=== PATIENT | female | born 1955 | race Caucasian/White ===

== ENCOUNTER 2020-01-11 11:42 | Emergency (ER) | payer OTHER ==
--- NOTE | 2020-01-11 13:53 | RAD REPORT ---
EXAM DESCRIPTION: CT - Head Brain Wo Cont - 01/11/2020 1:40 pm CLINICAL HISTORY: fall and hit head COMPARISON: No comparisons TECHNIQUE: Axial 5 mm thick images of the head were obtained without IV contrast. All CT scans are performed using dose optimization technique as appropriate and may include automated exposure control or mA/KV adjustment according to patient size. FINDINGS: No intracranial hemorrhage, mass, edema or shift of mid-line structures. No acute infarcti on changes seen. No abnormal extra-axial fluid collections. Ventricles are normal. Mastoid air cells and visualized portions of the paranasal sinuses are clear. No acute bony findings. IMPRESSION: Negative non-contrast CT head examination.
--- NOTE | 2020-01-11 14:33 | ER ---
Nurse's Notes [facility] Name: Lisandra Paige Age: 64 yrs Sex: Female : 1955 Arrival Date: 01/11/2020 Time: 11:47 Bed 25 Private MD: Diagnosis: Laceration without foreign body of unspecified part of head Presentation: 01/10 11:59 Chief complaint: Patient states: the floor at work was just mopped and she slipped and sv hit the door and then fell to the ground, hitting the right side of her head. Dried blood noted, denies LOC. Care prior to arrival: None. Mechanism of Injury: Fall from standing position. Trauma event details: Injury occurred in the [facility], Injury occurred: in a public building. Injury occurred: January 11, 2020. 11:59 Acuity: IRENE 3 sv 11:59 Method Of Arrival: Wheelchair sv 12:00 Coronavirus screen: Client denies travel out of the [place] in the last 14 days. At this sv time, the client does not indicate any symptoms associated with coronavirus-19. Ebola Screen: No symptoms or risks identified at this time. Initial Sepsis Screen: Does the patient meet any 2 criteria? No. Patient's initial sepsis screen is negative. Does the patient have a suspected source of infection? No. Patient's initial sepsis screen is negative. Risk Assessment: Do you want to hurt yourself or someone else? Patient reports no desire to harm self or others. Onset of symptoms was January 11, 2020. Trauma Activation: Not Applicable Physician: ED Physician; Name: ; Notified At: ; Arrived At: Physician: General Surgeon; Name: ; Notified At: ; Arrived At: Physician: Radiology; Name: ; Notified At: ; Arrived At: Physician: Respiratory; Name: ; Notified At: ; Arrived At: Physician: Lab; Name: ; Notified At: ; Arrived At: Historical: - Allergies: 12:01 No Known Allergies; sv - PMHx: 12:01 None; sv - PSHx: 12:01 None; sv - Immunization history:: Flu vaccine is not up to date. - Social history:: Smoking status: Patient reports the use of cigarette tobacco products, smokes one-half pack cigarettes per day. Screenin:15 Abuse screen: Denies threats or abuse. Denies injuries from another. Nutritional hb screening: No deficits noted. Tuberculosis screening: No symptoms or risk factors identified. Fall Risk None identified. Primary Survey: 11:59 NO uncontrolled hemorrhage observed. A: The patient is alert. Airway: patent, No sv supplemental oxygen in use on arrival. Oral cavity: clear. Breathing/Chest: Respiratory pattern: regular, Respiratory effort: spontaneous, unlabored. Circulation: Skin color: pink, Skin temperature: warm, dry. Disability Alert. Exposure/Environment: All clothing and personal items were removed. Forensic evidence collection is not deemed to be indicated at this time. Items placed in patient belonging bag. Assessment: 13:15 General: Appears in no apparent distress. Behavior is calm, cooperative. Pain: Pain hb currently is 5 out of 10 on a pain scale. Neuro: Level of Consciousness is awake, alert, obeys commands, Oriented to person, place, time, situation. Cardiovascular: Capillary refill < 3 seconds Patient's skin is warm and dry. Respiratory: Respiratory effort is even, unlabored, Respiratory pattern is regular, symmetrical. GI: No signs and/or symptoms were reported involving the gastrointestinal system. : No signs and/or symptoms were reported regarding the genitourinary system. EENT: No signs and/or symptoms were reported regarding the EENT system. Derm: Skin is pink, warm \T\ dry. Musculoskeletal: No signs and/or symptoms reported regarding the musculoskeletal system. Injury Description: Laceration sustained to right temporal area is clean, 0.5 to 2.5 cm long, not bleeding, was sustained 30-60 minutes ago. 14:00 Reassessment: Patient appears in no apparent distress at this time. No changes from hb previously documented assessment. Patient and/or family updated on plan of care and expected duration. Pain level reassessed. Patient is alert, oriented x 3, equal unlabored respirations, skin warm/dry/pink. Vital Signs: 11:59 BP 142 / 54; Pulse 77; Resp 16; Temp 98.6; Pulse Ox 99% ; sv 13:00 BP 120 / 66; Pulse 69; Pulse Ox 97% on R/A; Pain 5/10; jp3 [place] Coma Score: 11:59 Eye Response: spontaneous(4). Verbal Response: oriented(5). Motor Response: obeys sv commands(6). Total: 15. Trauma Score (Adult): 11:59 Eye Response: spontaneous(1); Verbal Response: oriented(1); Motor Response: obeys sv commands(2); Systolic BP: > 89 mm Hg(4); Respiratory Rate: 10 to 29 per min(4); Taco Score: 15; Trauma Score: 12 ED Course: 11:47 Patient arrived in ED. ds1 12:00 Triage completed. sv 12:57 Patient has correct armband on for positive identification. Bed in low position. Call jp3 light in reach. Verbal reassurance given. Pulse ox on. NIBP on. 12:57 Patient maintains SpO2 saturation greater than 95% on room air. jp3 13:08 Teresa Gregory, MANAV is Primary Nurse. hb 13:11 Sorin Pang PA is PHCP. cp 13:11 Tyrese Oconnell MD is Attending Physician. cp 13:50 Wound care: to laceration located on right temporal area was cleaned with Hibiclens, jp3 irrigated with normal saline, Patient tolerated well. Administered Medications: No medications were administered Intake: 11:59 PO: 0ml; Total: 0ml. sv Output: 11:59 Urine: 0ml; Total: 0ml. sv Outcome: 14:32 Discharge ordered by MD. cp 14:44 Patient left the ED. hb Signatures: Bernice Tafoya RN RN KaurKatalina ds1 Sorin Pang PA PA cp Teresa Gregory RN Francisco Osei jp3 Corrections: (The following items were deleted from the chart) 12:03 11:59 Pulse 77bpm; Resp 16bpm; Pulse Ox 99%; Temp 98.6F; sv sv
--- NOTE | 2020-01-11 14:33 | EDPHYS ---
Physician Documentation [facility] Name: Lisandra Paige Age: 64 yrs Sex: Female : 1955 Arrival Date: 01/11/2020 Time: 11:47 Bed 25 Private MD: ED Physician Tyrese Oconnell HPI: 01/10 13:20 This 64 yrs old Female presents to ER via Wheelchair with complaints of Fall cp Injury - Hit Head. 13:20 Details of fall: The patient fell from an upright position, while walking, slip and cp fall on wet floor while at work. Onset: The symptoms/episode began/occurred this morning. Associated injuries: The patient sustained injury to the head, laceration, of the right temporal area. 13:20 Patient denies LOC after striking head. cp Historical: - Allergies: 12:01 No Known Allergies; sv - PMHx: 12:01 None; sv - PSHx: 12:01 None; sv - Immunization history:: Flu vaccine is not up to date. - Social history:: Smoking status: Patient reports the use of cigarette tobacco products, smokes one-half pack cigarettes per day. ROS: 13:25 Constitutional: Negative for body aches, chills, fever. cp 13:25 Neck: Negative for pain with movement, pain at rest, stiffness. cp 13:25 Cardiovascular: Negative for chest pain. 13:25 Respiratory: Negative for cough, shortness of breath, wheezing. 13:25 Abdomen/GI: Negative for abdominal pain, nausea, vomiting, and diarrhea. 13:25 Back: Negative for pain at rest, pain with movement. 13:25 Neuro: Negative for altered mental status, dizziness, headache, loss of consciousness, weakness. 13:25 All other systems are negative. Exam: 13:30 Constitutional: The patient appears in no acute distress, alert, awake, comfortable, cp non-diaphoretic, non-toxic, well developed, well nourished. 13:30 Head/face: Noted is a laceration(s), that is superficial, of the right temporal area. cp 13:30 Eyes: Periorbital structures: appear normal, Pupils: equal, round, and reactive to light and accomodation, Extraocular movements: intact throughout, Conjunctiva: normal, no exudate, no injection, Sclera: no appreciated abnormality, Lids and lashes: appear normal, bilaterally. 13:30 ENT: External ear(s): are unremarkable, Ear canal(s): are normal, clear, TM's: dullness, bilaterally, Nose: is normal, Mouth: Lips: moist, Oral mucosa: moist, Posterior pharynx: Airway: no evidence of obstruction, patent. 13:30 Neck: C-spine: vertebral tenderness, is not appreciated, crepitus, is not appreciated, ROM/movement: is normal, is supple, without pain, no range of motions limitations. 13:30 Chest/axilla: Inspection: normal. 13:30 Cardiovascular: Rate: normal. 13:30 Respiratory: the patient does not display signs of respiratory distress, Respirations: normal, no use of accessory muscles, no retractions, labored breathing, is not present. 13:30 Abdomen/GI: Exam negative for discomfort, distension, guarding, Inspection: abdomen appears normal. 13:30 Back: pain, is absent, ROM is normal. 13:30 Neuro: Orientation: to person, place \T\ time. Mentation: is normal, Cerebellar function: is grossly normal, Motor: moves all fours, strength is normal, Sensation: no obvious gross deficits, Gait: is steady. Vital Signs: 11:59 BP 142 / 54; Pulse 77; Resp 16; Temp 98.6; Pulse Ox 99% ; sv 13:00 BP 120 / 66; Pulse 69; Pulse Ox 97% on R/A; Pain 5/10; jp3 [place] Coma Score: 11:59 Eye Response: spontaneous(4). Verbal Response: oriented(5). Motor Response: obeys sv commands(6). Total: 15. Trauma Score (Adult): 11:59 Eye Response: spontaneous(1); Verbal Response: oriented(1); Motor Response: obeys sv commands(2); Systolic BP: > 89 mm Hg(4); Respiratory Rate: 10 to 29 per min(4); Taco Score: 15; Trauma Score: 12 Laceration: 14:30 Wound Repair of 2cm ( 0.8in ) subcutaneous laceration to right lateral scalp. Linear cp shaped.. Distal neuro/vascular/tendon intact. Wound prep: Moderate cleansing by die maintenance technician. Skin closed with 3 1-0 [place] using staple gun. Patient tolerated well. MDM: 13:17 Patient medically screened. 13:30 Differential diagnosis: closed head injury, contusion, fracture, multiple trauma, cp concussion. 14:31 Data reviewed: vital signs, nurses notes, radiologic studies, CT scan. 14:31 Counseling: I had a detailed discussion with the patient and/or guardian regarding: the cp historical points, exam findings, and any diagnostic results supporting the discharge/admit diagnosis, radiology results, to return to the emergency department if symptoms worsen or persist or if there are any questions or concerns that arise at home. Response to treatment: the patient's symptoms have markedly improved after treatment. Special discussion: Based on the patient's history, exam and DX evaluation, there is no indication for emergent intervention or inpatient TX. It is understood by the patient/guardian that if the SXs persist or worsen they need to return immediately for re-evaluation. ED course: VSS. CT of head negative for fracture and/or intracranial hemorrhage. Will discharge to home for continued monitoring with head injury precautions. 01/10 13:30 Order name: CT Head Brain wo Cont 01/10 13:54 Order name: CT; Complete Time: 14:23 EDAZ 01/10 14:23 Interpretation: Report reviewed. 01/10 13:30 Order name: Wound Care: please clean and irrigate wound; Complete Time: 13:42 cp Administered Medications: No medications were administered Disposition: 14:45 Chart complete. 01/11 07:41 Co-signature as Attending Physician, Tyrese Oconnell MD I agree with the assessment and kdr plan of care. Disposition: 01/11/20 14:32 Discharged to Home. Impression: Laceration without foreign body of unspecified part of head. - Condition is Stable. - Discharge Instructions: Head Injury, Adult, Laceration Care, Adult. - Medication Reconciliation Form, Thank You Letter, Antibiotic Education, Prescription Opioid Use form. - Follow up: Private Physician; When: 1 - 2 days; Reason: Recheck today's complaints. - Problem is new. - Symptoms have improved. Signatures: Dispatcher [employer] EDAZ Bernice Tafoya RN RN sv Rittger, Kevin, MD MD [facility] Sorin Pang PA PA cp Teresa Gregory RN RN Corrections: (The following items were deleted from the chart) 01/10 14:44 14:32 01/11/2020 14:32 Discharged to Home. Impression: Laceration without foreign body hb of unspecified part of head. Condition is Stable. Forms are Medication Reconciliation Form, Thank You Letter, Antibiotic Education, Prescription Opioid Use. Follow up: Private Physician; When: 1 - 2 days; Reason: Recheck today's complaints. Problem is new. Symptoms have improved. cp
[2020-01-11 14:57] VITALS: TEMP 98.6
[2020-01-11 14:58] VITALS: BP 120/66; O2SAT 97
== END 2020-01-11 14:44 | disposition home or self-care (01) ==
LOC: ER 11:42
PROC: 0JQ00ZZ Repair Scalp Subcutaneous Tissue and Fascia, Open Approach (ICD-10-PCS; principal; 2020-01-11)
DX: S01.91XA Laceration without foreign body of unspecified part of head, initial encounter (principal); W01.198A Fall on same level from slipping, tripping and stumbling with subsequent striking against other object, initial encounter; Y93.9 Activity, unspecified; Y92.9 Unspecified place or not applicable; Y99.0 Civilian activity done for income or pay
CPT/HCPCS: 70450; 99284

== ENCOUNTER 2020-01-28 07:09 | Emergency (ER) | payer OTHER ==
--- NOTE | 2020-01-28 07:34 | ER ---
Nurse's Notes [facility] Name: Lisandra Paige Age: 64 yrs Sex: Female : 1955 Arrival Date: 01/28/2020 Time: 07:11 Bed 16 Private MD: Diagnosis: Staple removal - well healing wound Presentation: 01/27 07:28 Chief complaint: Patient states: needs three mariah removed from right side of head, iw fell on 01-11-20. Coronavirus screen: At this time, the client does not indicate any symptoms associated with coronavirus-19. Ebola Screen: Patient negative for fever greater than or equal to 101.5 degrees Fahrenheit, and additional compatible Ebola Virus Disease symptoms Patient denies exposure to infectious person. Patient denies travel to an Ebola-affected area in the 21 days before illness onset. No symptoms or risks identified at this time. Risk Assessment: Do you want to hurt yourself or someone else? Patient reports no desire to harm self or others. 07:28 Method Of Arrival: Ambulatory iw 07:28 Acuity: IRENE 5 iw Historical: - Allergies: 07:29 No Known Allergies; iw - PSHx: 07:29 None; iw - Immunization history:: Adult Immunizations up to date. - Social history:: Smoking status: Patient reports the use of cigarette tobacco products, smokes one-half pack cigarettes per day. Screenin:30 Abuse screen: Denies threats or abuse. Denies injuries from another. Nutritional iw screening: No deficits noted. Tuberculosis screening: No symptoms or risk factors identified. Fall Risk None identified. Assessment: 07:29 General: Appears in no apparent distress. comfortable, Behavior is calm, cooperative. iw Pain: Denies pain. Neuro: Level of Consciousness is awake, alert, obeys commands, Oriented to person, place, time, situation. Cardiovascular: Patient's skin is warm and dry. Respiratory: Respiratory effort is even, unlabored, Respiratory pattern is regular, symmetrical. GI: No signs and/or symptoms were reported involving the gastrointestinal system. Derm: Skin is intact, is healthy with good turgor. Musculoskeletal: Range of motion: intact in all extremities. Vital Signs: 07:29 BP 154 / 63; Pulse 84; Resp 16; Temp 98.3; Pulse Ox 98% on R/A; Weight 90.72 kg; Height iw 5 ft. 4 in. (162.56 cm); Pain 0/10; 07:29 Body Mass Index 34.33 (90.72 kg, 162.56 cm) iw ED Course: 07:11 Patient arrived in ED. ag5 07:24 Tyrese Oconnell MD is Attending Physician. kdr 07:28 Triage completed. iw 07:29 Arm band placed on. iw 07:30 Mariya Kwon, RN is Primary Nurse. iw 07:30 Patient has correct armband on for positive identification. iw 07:30 No provider procedures requiring assistance completed. Patient did not have IV access iw during this emergency room visit. Administered Medications: No medications were administered Outcome: 07:34 Discharge ordered by . kdr 07:48 Patient left the ED. iw Signatures: Tyrese Oconnell MD MD kdr Mariya Kwon, RN RN Christiano Matson ag5
--- NOTE | 2020-01-28 07:34 | EDPHYS ---
Physician Documentation [facility] Name: Lisandra Paige Age: 64 yrs Sex: Female : 1955 Arrival Date: 01/28/2020 Time: 07:11 Bed 16 Private MD: ED Physician Tyrese Oconnell HPI: 01/27 07:37 This 64 yrs old Female presents to ER via Ambulatory with complaints of kdr Staple Removal. 07:37 The patient has mariah on the right temporal area. Previous treatment: the care was kdr rendered at [facility], Treatment type: The patient's original treatment included mariah. Sutures/mariah progress: The patient has no c/o's. The wound is well-healing with no redness, swelling, discharge, or dehiscence reported. The patient has not experienced similar symptoms in the past. The patient has been recently seen by a physician: The patient has been recently seen at the [facility] Emergency Department, a couple of weeks ago. Historical: - Allergies: 07:29 No Known Allergies; iw - PSHx: 07:29 None; iw - Immunization history:: Adult Immunizations up to date. - Social history:: Smoking status: Patient reports the use of cigarette tobacco products, smokes one-half pack cigarettes per day. ROS: 07:37 Constitutional: Negative for fever, chills, and weight loss, Eyes: Negative for injury, kdr pain, redness, and discharge, Neck: Negative for injury, pain, and swelling. Exam: 07:37 Constitutional: This is a well developed, well nourished patient who is awake, alert, kdr and in no acute distress. Eyes: Pupils equal round and reactive to light, extra-ocular motions intact. Lids and lashes normal. Conjunctiva and sclera are non-icteric and not injected. Cornea within normal limits. Periorbital areas with no swelling, redness, or edema. 07:37 Head/face: Noted is Well healed wound to right parietal area. Vital Signs: 07:29 BP 154 / 63; Pulse 84; Resp 16; Temp 98.3; Pulse Ox 98% on R/A; Weight 90.72 kg; Height iw 5 ft. 4 in. (162.56 cm); Pain 0/10; 07:29 Body Mass Index 34.33 (90.72 kg, 162.56 cm) iw Procedures: 07:37 Suture/Staple removal: Removed 3 mariah, from right temporal area, site appears well kdr healed, dressed with Patient tolerated well. MDM: 07:34 Patient medically screened. kdr 07:37 Data reviewed: vital signs, nurses notes. Counseling: I had a detailed discussion with kdr the patient and/or guardian regarding: the historical points, exam findings, and any diagnostic results supporting the discharge/admit diagnosis, the need for outpatient follow up. Administered Medications: No medications were administered Disposition: 01/28/20 07:34 Discharged to Home. Impression: Staple removal - well healing wound. - Condition is Stable. - Discharge Instructions: Suture Removal, Care After, Stitches, [place], or Adhesive Wound Closure, [id number]. - Medication Reconciliation Form, Thank You Letter form. - Follow up: Private Physician; When: 2 - 3 days; Reason: If symptoms return, Further diagnostic work-up, Recheck today's complaints, Continuance of care, Re-evaluation by your physician. Signatures: Tyrese Oconnell MD MD kdr Mariya Kwon RN RN iw Corrections: (The following items were deleted from the chart) 07:48 07:34 01/28/2020 07:34 Discharged to Home. Impression: Staple removal - well healing iw wound. Condition is Stable. Forms are Medication Reconciliation Form, Thank You Letter, Antibiotic Education, Prescription Opioid Use. Follow up: Private Physician; When: 2 - 3 days; Reason: If symptoms return, Further diagnostic work-up, Recheck today's complaints, Continuance of care, Re-evaluation by your physician. kdr
[2020-01-28 07:55] VITALS: BP 154/63; TEMP 98.3; O2SAT 98
== END 2020-01-28 07:48 | disposition home or self-care (01) ==
LOC: ER 07:09
DX: Z48.02 Encounter for removal of sutures (principal)
CPT/HCPCS: 99281